=== PATIENT | female | born 1980 | race Caucasian/White ===

== ENCOUNTER 2018-06-15 20:20 | Inpatient (IN) | payer MEDICAID, OTHER ==
[~2018-06-15] VITALS: Ht 157.5 cm; Wt 66.4 kg
[2018-06-15] MEDS ORDERED: ASPIRIN 81 MG TAB PO STA ×2 (21:01→22:15)
[2018-06-15] MEDS ORDERED: HYDROmorphONE 1 MG/ML SYG IV STA (21:01)
[2018-06-15] MEDS ORDERED: ONDANSETRON 4 MG INJ IV STA (21:01)
[2018-06-15] MEDS ORDERED: METHYLPREDNISOLONE 125 MG INJ IV ONE (21:30)
--- NOTE | 2018-06-15 22:10 | ERD ---
ER Documentation Chief Complaint Chief Complaint Left trapezius pain, left jaw pain onset today HPI This is a 38-year-old female complaining of pain to her left trapezius and periscapular region that is worse with movement of the left arm and left shoulder. She said the onset of this pain was last night. Denies any injury or trauma denies any recent lifting pushing pulling. She said she had brief left anterior chest pain this morning x1 but no shortness of breath. She also complains of pain to the left TMJ region that she says hurts when she pushes on it or opens her mouth. No trauma to this area either. No dizziness shortness of breath diaphoresis ROS All systems reviewed and are negative except as per history of present illness. Allergies Allergies: Coded Allergies: No Known Allergy (Unverified , 06/15/18) PMhx/Soc Medical and Surgical Hx: pt denies Medical Hx, pt denies Surgical Hx Hx Alcohol Use: No Hx Substance Use: No Hx Tobacco Use: No Smoking Status: Never smoker FmHx Family History: No coronary disease Physical Exam Vitals Vital Signs Date Temp Pulse Resp B/P (MAP) Pulse Ox O2 O2 Flow FiO2 Time Delivery Rate 06/15/18 98.6 70 16 114/76 99 Room Air 20:34 (89) 06/15/18 98.6 68 18 129/82 100 20:25 (98) Physical Exam Const: Well-developed, well-nourished Head: Atraumatic, normocephalic Eyes: Normal Conjunctiva, PERRLA, EOMI, normal sclera, no nystagmus ENT: Normal External Ears, Nose and Mouth, moist mucus membranes, tenderness to the left TMJ, pain is worse when opening her mouth and reproducible when opening her mouth. Neck: Full range of motion. No meningismus, no lymphadenopathy, there is reproducible tenderness to the left trapezius muscle and rhomboids, the pain is reproducible with movement of the left arm and left shoulder. Resp: Clear to auscultation bilaterally, no wheezing, rhonchi, rales Cardio: Regular rate and rhythm, no murmurs, S1 S2 present Abd: Soft, non tender x 4, non distended. Normal bowel sounds, no guarding or rebound, no pulsitile abdominal masses or bruits Skin: No petechiae or rashes, no ecchymosis , no maculopapular rash Back: No midline or flank tenderness Ext: No cyanosis, or edema, FROM x 4, normal inspection, neurovascularly intact x 4 Neur: Awake and alert, STR 5/5 x 4, sensation intact x 4, no focal findings, cerebellum intact Psych: Normal Mood and Affect Results 24 hrs Laboratory Tests Test 06/15/18 21:29 Troponin I 12.700 ng/ml Current Medications Medications Dose Sig/Madisyn Start Time Status Last (Trade) Ordered Route PRN Stop Time Admin Dose Reason Admin Aspirin 162 mg ONCE STAT 06/15/18 DC 06/15/18 (Aspirin) PO 21:01 21:21 06/15/18 21:02 1 mg ONCE STAT 06/15/18 DC 06/15/18 Hydromorphone IV 21:01 21:31 HCl 06/15/18 (Dilaudid) 21:02 Ondansetron 4 mg ONCE STAT 06/15/18 DC 06/15/18 HCl (Zofran IV 21:01 21:31 Inj) 06/15/18 21:02 125 mg ONCE ONCE 06/15/18 DC 06/15/18 Methylprednis IV 21:30 21:31 olone Sodium 06/15/18 Succinate 21:31 (Solu-Medrol) Aspirin 162 mg ONCE STAT 06/15/18 DC (Aspirin) PO 22:15 06/15/18 22:18 1 inch ONCE STAT 06/15/18 DC Nitroglycerin TD 22:15 06/15/18 (Nitroglyceri 22:18 n 2% Oint) Enoxaparin 70 mg ONCE STAT 06/15/18 DC Sodium SC 22:15 (Lovenox) 06/15/18 22:18 Procedures/MDM EKG: Rate/Rhythm: Normal sinus rhythm, Q waves in lead V1 and V2 QRS, ST, QT: NORMAL SC, QRS, QT] Impression: Abnormal EKG Patient's troponin is 12. She is a very atypical presentation for non-STEMI. She has no risk factors for cardiovascular disease. I ordered blood work, chest x-ray. Will administer another 162 of aspirin with Nitropaste and Lovenox. Will admit to panel. Critical Care Time: 30 minutes Treatments/Evaluations: Close monitoring and treatment of unstable vital signs, cardiorespiratory, and neurologic status, while maintaining tight balance of fluid, respiratory, and cardiac interventions. This time includes discussing the case with the patient and the patient's family. This time does not include all procedures stated elsewhere in this record. This time also includes reviewing old records, labs and radiological studies. This time includes examining and re- examining the patient. Additionally, this time also includes arranging care with admitting and consulting physicians. Departure Diagnosis: Primary Impression: Non-STEMI (non-ST elevated myocardial infarction) Condition: Stable ERIC CHAU DO Jun 15, 2018 22:10
[2018-06-15] MEDS ORDERED: NITROGLYCERIN 2% 1 GM OINT PKT TD STA (22:15)
[2018-06-15] MEDS ORDERED: ENOXAPARIN 60 MG/0.6 ML SYG SC STA (22:15)
[2018-06-15] MEDS ORDERED: ONDANSETRON 4 MG INJ IV PRN (22:30)
[2018-06-15] MEDS ORDERED: ACETAMINOPHEN 325 MG TAB PO PRN (22:30)
[2018-06-15] MEDS ORDERED: IBUP-1982 PO (23:52)
[2018-06-15] MEDS ORDERED: MULTI PO (23:53)
--- NOTE | 2018-06-15 23:55 | HP ---
Date/Time of Note Date/Time of Note DATE: 06/15/18 TIME: 23:55 Assessment/Plan VTE Prophylaxis Pharmacological prophylaxis: heparin Lines/Catheters IV Catheter Type (from Nrs): Saline Lock Assessment/Plan Assessment/Plan 38-year-old female with no significant past medical history being admitted for NSTEMI PLAN Admit to telemetry unit Patient is status post therapeutic dose of Lovenox and aspirin in the ER. We will continue. Add statin and if blood pressure allows beta-loi. As needed nitro Supplemental oxygen Trend troponin 2D echo and cardiology consult Result Diagram: 06/15/18212506/15/182125 Results 24hrs Laboratory Tests Test 06/15/18 21:26 06/15/18 21:29 White Blood Count 9.8 Red Blood Count 3.95 L Hemoglobin 11.7 L Hematocrit 34.0 L Mean Corpuscular Volume 86.1 Mean Corpuscular Hemoglobin 29.6 Mean Corpuscular Hemoglobin Concent 34.4 Red Cell Distribution Width 12.7 Platelet Count 228 Mean Platelet Volume 11.8 H Immature Granulocytes % 0.400 Neutrophils % 80.8 H Lymphocytes % 10.4 L Monocytes % 7.4 Eosinophils % 0.7 Basophils % 0.3 Nucleated Red Blood Cells % 0.0 Immature Granulocytes # 0.040 H Neutrophils # 7.9 H Lymphocytes # 1.0 Monocytes # 0.7 Eosinophils # 0.1 Basophils # 0.0 Nucleated Red Blood Cells # 0.0 Prothrombin Time 14.0 Prothrombin Time Ratio 1.1 INR International Normalized Ratio 1.07 Activated Partial Thromboplast Time 28.6 Sodium Level 138 Potassium Level 3.1 L Chloride Level 101 Carbon Dioxide Level 24 Anion Gap 13 Blood Urea Nitrogen 14 Creatinine 0.48 Est Glomerular Filtrat Rate mL/min > 60 Glucose Level 167 Calcium Level 8.8 Total Bilirubin 0.2 Direct Bilirubin 0.00 Indirect Bilirubin 0.2 Aspartate Amino Transf (AST/SGOT) 105 H Alanine Aminotransferase (ALT/SGPT) 75 H Alkaline Phosphatase 107 Total Protein 6.1 Albumin 3.4 Globulin 2.70 Albumin/Globulin Ratio 1.25 Troponin I 12.700 *H HPI/ROS Admit Date/Time Admit Date/Time Hx of Present Illness This is a 38-year-old female with no significant past medical history who presents the ER complaining of chest pain, left shoulder and left arm pain. Chest pain is mainly left-sided, which started in the morning and has resolved already. Throughout the day, she continues to have left shoulder/left upper back as well as left arm pain. Denied shortness of breath, nausea/vomiting or diaphoresis. He also denied trauma or strenuous activities. When she presented to ER, initial troponin was found to be 12. EKG shows Q waves as well as T wave abnormalities, but no ST elevation or depression. Patient was given treatment dose of Lovenox. Vital stable and the chest x-ray without acute findings. . PMH/Family/Social Past Medical History Medications Current Medications Ondansetron HCl (Zofran Inj) 4 mg ER BRIDGE PRN IV NAUSEA AND/OR VOMITING; Start 06/15/18 at 22:30; Stop 06/16/18 at 22:29 Acetaminophen (Tylenol Tab) 650 mg ER BRIDGE PRN PO MILD PAIN(1-3)OR ELEVATED TEMP; Start 06/15/18 at 22:30; Stop 06/16/18 at 22:29 Coded Allergies: No Known Allergy (Unverified , 06/15/18) Social History Smoking Status: Never smoker Exam/Review of Systems Vital Signs Vitals Vital Signs Date Temp Pulse Resp B/P (MAP) Pulse Ox O2 O2 Flow FiO2 Time Delivery Rate 06/15/18 66 13 113/76 99 Nasal 2.0 22:57 (88) Cannula 06/15/18 98.6 20:34 Exam Exam Constitutional: other (no acute distress) Head: normocephalic Respiratory: other (slight decreased at bases) Cardiovascular: regular rate and rhythm Gastrointestinal: soft Extremities: normal pulses PMH/Family/Social Past Medical History Medical History: other (see hpi) Coded Allergies: No Known Drug Allergy (Verified Allergy, Unknown, 02/01/16) Past Surgical History Past Surgical Hx: other (see hpi) Family History Significant Family History: no pertinent family hx Social History Alcohol Use: other Smoking Status: Unknown if ever smoked Drug Use: other ESTER LEONE MD Jun 15, 2018 23:55
[2018-06-16] VITALS (11 sets, daily range): BP systolic 95–102; BP diastolic 51–62; PULSE 58–90; RESP 16–18; Ht 157.5 cm; Wt 66.4 kg
[2018-06-16] MEDS ORDERED: NITROGLYCERIN (SL) 0.4 MG TAB SL PRN
[2018-06-16] MEDS ORDERED: ALBUTEROL/IPRATROPIUM (NEB) 3 ML AMP HHN PRN
[2018-06-16] MEDS ORDERED: ATORVASTATIN 80 MG TAB PO ONE
[2018-06-16] MEDS ORDERED: ONDANSETRON 4 MG INJ IV PRN
[2018-06-16] MEDS ORDERED: HYDROCODONE/APAP (5/325) TAB PO PRN ×2
[2018-06-16] MEDS ORDERED: NACL 0.9% 3 ML SYG IV SCH
[2018-06-16] MEDS ORDERED: ACETAMINOPHEN 325 MG TAB PO PRN
--- NOTE | 2018-06-16 00:57 | NUR ---
NOTES ADMISSION UNDER THE CARE OF DR LEONE. ADMISSION ORDER NOTED AND CARRIED OUT. INITIAL ASSESSMENT DONE.
[2018-06-16] MEDS: DEXTROSE 5%-0.45% NACL 1,000 ML IV SCH ×3 (01:50→12:55)
--- NOTE | 2018-06-16 06:51 | NUR ---
NOTES PT DENIES ANY PAIN DURING THE SHIFT. INSTRUCTED TO CALL THE NURSE IF SHE FEEL ANY DISCOMFORT.
[2018-06-16] MEDS: ASPIRIN 81 MG TAB PO SCH (09:12)
[2018-06-16] MEDS: ENOXAPARIN 80 MG/0.8 ML SYG SC SCH ×2 (09:13→20:16)
--- NOTE | 2018-06-16 11:24 | PN ---
Date/Time of Note Date/Time of Note DATE: 06/16/18 TIME: 11:23 Assessment/Plan VTE Prophylaxis Risk score (from Ns)>0 risk: 2 SCD applied (from Nsg): Yes Pharmacological prophylaxis: LMWH Lines/Catheters IV Catheter Type (from Nrsg): Peripheral IV Urinary Cath still in place: No Assessment/Plan Hospital Course SUBJECTIVE: Lying in bed comfortably. Denies any chest pain, palpitation, shortness of breath or other discomfort at this time. OBJECTIVE: Vital signs-see below PHYSICAL EXAM: Constitutional: Well-developed, adequately built, lying in bed comfortably. Psych: nl mood/affect, no complaints Head: atraumatic, normocephalic Eyes: nl conjunctiva, nl sclera ENMT: mucosa pink and moist, nl external ears & nose Neck: non-tender, supple Respiratory: clear to auscultation, normal air movement Cardiovascular: nl pulses, regular rate and rhythm Gastrointestinal: non-tender, soft, bowel sounds active in all 4 quadrants. Musculoskeletal/extremities: nl extremities to inspection, motor strength equal bilaterally, no focal deficit. Normal pulses,no cyanosis, no edema. Neurological: Alert oriented 3,nl speech, nl strength Skin: nl turgor ASSESSMENT/PLAN:38-year-old female with no past medical or social history, admitted with 2-day duration of left-sided chest pain radiating to left shoulder, neck, and LUE, found to have elevated troponin with EKG changes. 1. Non-ST elevated myocardial infarction. -Pending Cardiology consult. As per subhash, left message to Dr. Warner. I spoke with Dr. Warner and we will consult who is workers compensation attorney today. -Continue aspirin, full dose anticoagulation, increase statin to high intensity. -PRN nitroglycerin, morphine, oxygen if indicated. -Follow-up 2D echocardiogram -Initial EKG with presence of Q waves. I will repeat her twelve-lead EKG now. DVT prophylaxis: Full dose Lovenox PUD prophylaxis: Not indicated Diet: Recommend keeping patient n.p.o. for possible cardiac intervention today. Disposition: Continue current medical management and follow-up cardiology recommendations. Patient was seen in collaboration with . Result Diagram: 06/16/18 0549 06/16/18 0549 Results 24hrs Laboratory Tests Test 06/15/18 21:26 06/15/18 21:29 06/16/18 00:43 06/16/18 05:49 White Blood Count 9.8 8.1 Red Blood Count 3.95 L 4.14 L Hemoglobin 11.7 L 12.4 Hematocrit 34.0 L 35.6 L Mean Corpuscular 86.1 86.0 Volume Mean Corpuscular 29.6 30.0 Hemoglobin Mean Corpuscular 34.4 34.8 Hemoglobin Concent Red Cell 12.7 12.6 Distribution Width Platelet Count 228 263 Mean Platelet Volume 11.8 H 11.4 H Immature 0.400 0.600 H Granulocytes % Neutrophils % 80.8 H Lymphocytes % 10.4 L Monocytes % 7.4 Eosinophils % 0.7 Basophils % 0.3 Nucleated Red Blood 0.0 0.0 Cells % Immature 0.040 H 0.050 H Granulocytes # Neutrophils # 7.9 H Lymphocytes # 1.0 Monocytes # 0.7 Eosinophils # 0.1 Basophils # 0.0 Nucleated Red Blood 0.0 Cells # Prothrombin Time 14.0 Prothrombin Time 1.1 Ratio INR International 1.07 Normalized Ratio Activated 28.6 Partial Thromboplast Time Sodium Level 138 140 Potassium Level 3.1 L 4.0 Chloride Level 101 102 Carbon Dioxide Level 24 26 Anion Gap 13 12 Blood Urea Nitrogen 14 9 Creatinine 0.48 0.41 L Est Glomerular > 60 > 60 Filtrat Rate mL/min Glucose Level 167 194 Calcium Level 8.8 9.3 Total Bilirubin 0.2 0.3 Direct Bilirubin 0.00 0.00 Indirect Bilirubin 0.2 0.3 Aspartate Amino 105 H 106 H Transf (AST/SGOT) Alanine 75 H 68 Aminotransferase (AL T/SGPT) Alkaline Phosphatase 107 107 Total Protein 6.1 7.1 # Albumin 3.4 3.9 Globulin 2.70 3.20 Albumin/Globulin 1.25 1.21 Ratio Troponin I 12.700 *H 10.300 *H 5.960 *H Creatine Kinase 735 H 511 H Creatine Kinase 8.7 9.6 Index Creatinine Kinase MB 64.00 H 49.10 H (Mass) Segmented 90 H Neutrophils % (Manual) Band Neutrophils % 1 (Manual) Lymphocytes % 4 L (Manual) Reactive Lymphocytes 3 H % (Manual) Monocytes % (Manual) 1 Plasma Cells % 1 (manual) Neutrophils # 7.3 (Manual) Band Neutrophils # 0.0 Lymphocytes (Manual) 0.3 L Reactive Lymphocytes 0.2 H # Monocytes # (Manual) 0.0 L Plasma Cells # 0.0 (manual) Platelet Estimate NORMAL Giant Platelets 2 H Platelet Morphology @See below Comment Anisocytosis 1+ Hemoglobin A1c 5.5 Magnesium Level 2.1 Triglycerides Level 81 Cholesterol Level 142 LDL Cholesterol, 80 Calculated HDL Cholesterol 46 Cholesterol/HDL 3.0 Ratio Thyroid Stimulating 0.113 L Hormone (TSH) Exam/Review of Systems Vital Signs Vitals Vital Signs Date Temp Pulse Resp B/P (MAP) Pulse Ox O2 O2 Flow FiO2 Time Delivery Rate 06/16/18 62 09:12 06/16/18 98.0 16 98/58 (71) 99 Room Air 07:21 06/16/18 2.0 04:00 Intake and Output 06/15/18 06/15/18 06/16/18 1515:00 23:00 07:00 IntakeIntake Total 620 ml BalanceBalance 620 ml Medications Medications Current Medications Ondansetron HCl (Zofran Inj) 4 mg ER BRIDGE PRN IV NAUSEA AND/OR VOMITING; Start 06/15/18 at 22:30; Stop 06/16/18 at 22:29 Acetaminophen (Tylenol Tab) 650 mg ER BRIDGE PRN PO MILD PAIN(1-3)OR ELEVATED TEMP; Start 06/15/18 at 22:30; Stop 06/16/18 at 22:29 Dextrose/Sodium Chloride 1,000 ml @ 100 mls/hr Q10H IV Last administered on 06/16/18at 01:50; Admin Dose 100 MLS/HR; Start 06/16/18 at 00:00 IV Flush (NS 3 ml) 3 ml PER PROTOCOL IV ; Start 06/16/18 at 00:00 Ondansetron HCl (Zofran Inj) 4 mg Q6H PRN IV NAUSEA AND/OR VOMITING; Start 06/16/18 at 00:00 Aspirin (Aspirin) 81 mg DAILY PO Last administered on 06/16/18at 09:12; Admin Dose 81 MG; Start 06/16/18 at 09:00 Nitroglycerin (Nitroglycerin (Sl Tab) 0.4 Mg) 1 tab Q5M PRN SL CHEST PAIN; Start 06/16/18 at 00:00 Acetaminophen (Tylenol Tab) 650 mg Q6H PRN PO PAIN LEVEL 1-3 OR FEVER; Start 06/16/18 at 00:00 Acetaminophen/ Hydrocodone Bitart ([place] (5/325)) 1 tab Q6H PRN PO PAIN LEVEL 4-6; Start 06/16/18 at 00:00 Acetaminophen/ Hydrocodone Bitart ([place] (5/325)) 2 tab Q6H PRN PO PAIN LEVEL 7-10; Start 06/16/18 at 00:00 Albuterol/ Ipratropium (Duoneb) 3 ml Q2H RESP THERAPY PRN HHN SHORTNESS OF BR EATH; Start 06/16/18 at 00:00 Enoxaparin Sodium (Lovenox) 65 mg Q12 SC Last administered on 06/16/18at 09:13; Admin Dose 65 MG; Start 06/16/18 at 09:00 Atorvastatin Calcium (Lipitor) 20 mg HS PO ; Start 06/16/18 at 21:00 KARINA RAPP NP Jun 16, 2018 11:24
[2018-06-16] MEDS ORDERED: morphine 4 MG/ML VIAL IV PRN (11:30)
--- NOTE | 2018-06-16 12:12 | RADRPT ---
Echocardiogram Report Patient Name: RENETTA BUTTS Gender: Female Date: 1980 Study Date: 16-Jun-2018 Forging [employer] Finisher: Megan Diaz RDCS Location: [id number] Ref. Physician: ESTER LEONE Quality: Adequate Procedures: Transthoracic echocardiogram with complete 2D, M-Mode, and doppler examination. Indications: NSTEMI. 2D/M Mode Doppler Measurement Value Normal Ranges Measurement Value Normal Ranges LVIDd 2D 4.0 3.5 - 5.6 cm AV Peak Aston 1.3 m/sec LVIDs 2D 2.9 2.1 - 4.1 cm AV Peak PG 7.0 mmHg FS 2D 28.1 % LVOT Peak [place]ston 0.8 m/sec LVPWd 2D 1.0 0.6 - 1.1 cm LVOT Peak PG 2.0 mmHg IVSd 2D 0.9 0.6 - 1.1 cm MV E Peak [place]ston 0.9 m/sec IVS/LVPW 2D 0.9 MV A Peak Aston 0.9 m/sec AoR Diam 2D 2.3 2.0 - 3.7 cm MV E/A 1.0 LA/Ao 2D 1 0 - 1 MV Decel Time 169 msec EDV 2D 65.0 cm3 MV E/A 1.0 ESV 2D 24.1 cm3 TV E Peak [place]ston 0.7 m/sec LA Dimen 2D 3.0 2.3 - 4.0 cm Findings Left Ventricle: Overall, normal left ventricular systolic function. Not all segments visualized. Normal left ventricular cavity size. Normal left ventricular wall thickness. Ejection fraction is visually estimated at 60 %. Right Ventricle: Normal right ventricular size. Normal right ventricular systolic function. Left Atrium: The left atrium is normal in size. Right Atrium: The right atrium is normal in size. Mitral Valve: Normal appearance of the mitral valve. No mitral valve regurgitation is seen. Aortic Valve: Normal appearance of the aortic valve. No significant aortic stenosis or insufficiency. Tricuspid Valve: Normal appearance of the tricuspid valve. There is trace tricuspid regurgitation. Pulmonic Valve: Normal pulmonic valve appearance. No evidence of pulmonic regurgitation. Pericardium: Normal pericardium with no significant pericardial effusion. Aorta: Normal aortic root. IVC: Normal size and normal respiratory collapse consistent with normal right atrial pressure. Conclusions Overall, normal left ventricular systolic function. Not all segments visualized. Normal left ventricular cavity size. Normal left ventricular wall thickness. Ejection fraction is visually estimated at 60 %. Normal right ventricular size. Normal right ventricular systolic function. The left atrium is normal in size. The right atrium is normal in size. No significant valvular stenosis or regurgitation seen. Normal pericardium with no significant pericardial effusion. Electronically Signed By: Zoran Bryan 16-Jun-2018 12:11:19 -0800 Patient Name: RENETTA BUTTS Study Date: [id number]
--- NOTE | 2018-06-16 13:15 | CONS ---
Date/Time of Note Date/Time of Note DATE: 06/16/18 TIME: 13:10 Assessment/Plan Assessment/Plan Assessment/Plan Non-ST elevation myocardial infarction Preserved ejection fraction -Patient with initial symptoms of fevers and chills and cough and then developed left-sided chest pain and arm pain. Initial troponin was 12 and has since been trending down. She denies any shortness of breath or chest pain at the current time. Echocardiogram with difficult acoustic windows but overall preserved ejection fraction, ECG with anterior Q waves. Continue aspirin therapy, statin therapy, anticoagulation, will likely need coronary angiogram. Plan of care and findings discussed with the patient and at bedside via dehydration plant operator. -Dr Warner to resume care 06/17/2018 Result Diagram: 06/16/18 0549 06/16/18 0549 Results 24hrs Laboratory Tests Test 06/15/18 21:26 06/15/18 21:29 06/16/18 00:43 06/16/18 05:49 White Blood Count 9.8 8.1 Red Blood Count 3.95 L 4.14 L Hemoglobin 11.7 L 12.4 Hematocrit 34.0 L 35.6 L Mean Corpuscular 86.1 86.0 Volume Mean Corpuscular 29.6 30.0 Hemoglobin Mean Corpuscular 34.4 34.8 Hemoglobin Concent Red Cell 12.7 12.6 Distribution Width Platelet Count 228 263 Mean Platelet Volume 11.8 H 11.4 H Immature 0.400 0.600 H Granulocytes % Neutrophils % 80.8 H Lymphocytes % 10.4 L Monocytes % 7.4 Eosinophils % 0.7 Basophils % 0.3 Nucleated Red Blood 0.0 0.0 Cells % Immature 0.040 H 0.050 H Granulocytes # Neutrophils # 7.9 H Lymphocytes # 1.0 Monocytes # 0.7 Eosinophils # 0.1 Basophils # 0.0 Nucleated Red Blood 0.0 Cells # Prothrombin Time 14.0 Prothrombin Time 1.1 Ratio INR International 1.07 Normalized Ratio Activated 28.6 Partial Thromboplast Time Sodium Level 138 140 Potassium Level 3.1 L 4.0 Chloride Level 101 102 Carbon Dioxide Level 24 26 Anion Gap 13 12 Blood Urea Nitrogen 14 9 Creatinine 0.48 0.41 L Est Glomerular > 60 > 60 Filtrat Rate mL/min Glucose Level 167 194 Calcium Level 8.8 9.3 Total Bilirubin 0.2 0.3 Direct Bilirubin 0.00 0.00 Indirect Bilirubin 0.2 0.3 Aspartate Amino 105 H 106 H Transf (AST/SGOT) Alanine 75 H 68 Aminotransferase (AL T/SGPT) Alkaline Phosphatase 107 107 Total Protein 6.1 7.1 # Albumin 3.4 3.9 Globulin 2.70 3.20 Albumin/Globulin 1.25 1.21 Ratio Troponin I 12.700 *H 10.300 *H 5.960 *H Creatine Kinase 735 H 511 H Creatine Kinase 8.7 9.6 Index Creatinine Kinase MB 64.00 H 49.10 H (Mass) Segmented 90 H Neutrophils % (Manual) Band Neutrophils % 1 (Manual) Lymphocytes % 4 L (Manual) Reactive Lymphocytes 3 H % (Manual) Monocytes % (Manual) 1 Plasma Cells % 1 (manual) Neutrophils # 7.3 (Manual) Band Neutrophils # 0.0 Lymphocytes (Manual) 0.3 L Reactive Lymphocytes 0.2 H # Monocytes # (Manual) 0.0 L Plasma Cells # 0.0 (manual) Platelet Estimate NORMAL Giant Platelets 2 H Platelet Morphology @See below Comment Anisocytosis 1+ Hemoglobin A1c 5.5 Magnesium Level 2.1 Triglycerides Level 81 Cholesterol Level 142 LDL Cholesterol, 80 Calculated HDL Cholesterol 46 Cholesterol/HDL 3.0 Ratio Thyroid Stimulating 0.113 L Hormone (TSH) Consultation Date/Type/Reason Admit Date/Time Type of Consult cv Reason for Consultation Elevated troponin Hx of Present Illness This is a 38-year-old female with no significant past medical history was having symptoms of fevers, chills and cough proxy 2-3 days, then approximately 2-3 days ago, developed left-sided chest pain and arm pain. Patient could not describe the pain that she thought it felt musculoskeletal. She denies any chest pressure. Denies any shortness of breath. Symptoms were getting severe and slowly improved. Yesterday, patient with continued chest and arm pain because of the above, came to the emergency room for evaluation and care. She denies any further chest pain, arm pain since yesterday evening. She denies any shortness of breath. She complains of mild headache after nitroglycerin. 12 point review of systems was performed with all pertinent positives and negatives mentioned above and all else is negative Past Medical History Medical History: no pertinent history Medications Current Medications Dextrose/Sodium Chloride 1,000 ml @ 100 mls/hr Q10H IV Last administered on 06/16/18at 12:55; Admin Dose 100 MLS/HR; Start 06/16/18 at 00:00 IV Flush (NS 3 ml) 3 ml PER PROTOCOL IV ; Start 06/16/18 at 00:00 Ondansetron HCl (Zofran Inj) 4 mg Q6H PRN IV NAUSEA AND/OR VOMITING; Start 06/16/18 at 00:00 Aspirin (Aspirin) 81 mg DAILY PO Last administered on 06/16/18at 09:12; Admin Dose 81 MG; Start 06/16/18 at 09:00 Nitroglycerin (Nitroglycerin (Sl Tab) 0.4 Mg) 1 tab Q5M PRN SL CHEST PAIN; Start 06/16/18 at 00:00 Acetaminophen (Tylenol Tab) 650 mg Q6H PRN PO PAIN LEVEL 1-3 OR FEVER; Start 06/16/18 at 00:00 Albuterol/ Ipratropium (Duoneb) 3 ml Q2H RESP THERAPY PRN HHN SHORTNESS OF BREATH; Start 06/16/18 at 00:00 Enoxaparin Sodium (Lovenox) 65 mg Q12 SC Last administered on 06/16/18at 09:13; Admin Dose 65 MG; Start 06/16/18 at 09:00 Atorvastatin Calcium (Lipitor) 80 mg HS PO ; Start 06/16/18 at 21:00 Morphine Sulfate (morphine) 2 mg Q4H PRN IV SEVERE PAIN LEVEL 7-10; Start 06/16/18 at 11:30 Allergies: Coded Allergies: No Known Allergy (Unverified , 06/15/18) Past Surgical History Past Surgical Hx: no surgical history Family History Significant Family History: no pertinent family hx Social History Alcohol Use: none Smoking Status: Former smoker Other Social History Works as a cook in a restaurant Exam/Review of Systems Vital Signs Vitals Vital Signs Date Temp Pulse Resp B/P (MAP) Pulse Ox O2 O2 Flow FiO2 Time Delivery Rate 06/16/18 65 13:07 06/16/18 98.2 17 99/57 (71) 97 Nasal 11:37 Cannula 06/16/18 2.0 04:00 Intake and Output 06/15/18 06/15/18 06/16/18 1515:00 23:00 07:00 IntakeIntake Total 620 ml BalanceBalance 620 ml Exam No apparent distress Constitutional: alert, oriented, well developed Head: normocephalic Respiratory: clear to auscultation, normal air movement Cardiovascular: regular rate and rhythm, other (S1-S2 heard) Gastrointestinal: soft, non-tender, bowel sounds Extremities: other (No significant edema) Medications Medications Current Medications Dextrose/Sodium Chloride 1,000 ml @ 100 mls/hr Q10H IV Last administered on 06/16/18at 12:55; Admin Dose 100 MLS/HR; Start 06/16/18 at 00:00 IV Flush (NS 3 ml) 3 ml PER PROTOCOL IV ; Start 06/16/18 at 00:00 Ondansetron HCl (Zofran Inj) 4 mg Q6H PRN IV NAUSEA AND/OR VOMITING; Start 06/16/18 at 00:00 Aspirin (Aspirin) 81 mg DAILY PO Last administered on 06/16/18at 09:12; Admin Do se 81 MG; Start 06/16/18 at 09:00 Nitroglycerin (Nitroglycerin (Sl Tab) 0.4 Mg) 1 tab Q5M PRN SL CHEST PAIN; Start 06/16/18 at 00:00 Acetaminophen (Tylenol Tab) 650 mg Q6H PRN PO PAIN LEVEL 1-3 OR FEVER; Start 06/16/18 at 00:00 Albuterol/ Ipratropium (Duoneb) 3 ml Q2H RESP THERAPY PRN HHN SHORTNESS OF BREATH; Start 06/16/18 at 00:00 Enoxaparin Sodium (Lovenox) 65 mg Q12 SC Last administered on 06/16/18at 09:13; Admin Dose 65 MG; Start 06/16/18 at 09:00 Atorvastatin Calcium (Lipitor) 80 mg HS PO ; Start 06/16/18 at 21:00 Morphine Sulfate (morphine) 2 mg Q4H PRN IV SEVERE PAIN LEVEL 7-10; Start 06/16/18 at 11:30 Imaging Imaging ECG with sinus rhythm, anterior Q waves, nonspecific ST abnormalities Zoran Bryan DO Jun 16, 2018 13:15
--- NOTE | 2018-06-16 18:34 | NUR ---
END OF SHIFT REPORT: No complaints of chest pain all day. VSS. Patient updated with plan of care by Dr. Bryan and is agreeable. NPO except meds after midnight for possible procedure in AM.
[2018-06-16] MEDS: ATORVASTATIN 80 MG TAB PO SCH (20:10)
[2018-06-16] MEDS ORDERED: ATORVASTATIN 20 MG TAB PO SCH (21:00)
--- NOTE | 2018-06-16 21:21 | NUR ---
NOTES RESTING ON BED WITH HEPLOCK INTACT. INSTRUCTED TO KEEP NPO FROM MIDNIGHT FOR POSSIBLE PROCEDURE IN AM.
[2018-06-17] VITALS (10 sets, daily range): BP systolic 97–105; BP diastolic 54–62; PULSE 69–76; RESP 16–19
[2018-06-17] MEDS ORDERED: VERAPAMIL 5 MG INJ ONE (07:46)
[2018-06-17] MEDS ORDERED: SOD CHLORIDE 0.9% 500 ML ONE (07:46)
[2018-06-17] MEDS ORDERED: LIDOCAINE 1% (MDV) 20 ML INJ ONE (07:46)
[2018-06-17] MEDS ORDERED: IODIXANOL LOCM 100 ML BTL ONE ×2 (07:46→07:47)
[2018-06-17] MEDS ORDERED: MIDAZOLAM 1 MG/ML 2 ML INJ ONE (07:47)
[2018-06-17] MEDS ORDERED: NITROGLYCERIN (IC) 100 MCG/ML INJ ONE (07:47)
[2018-06-17] MEDS ORDERED: FENTAnyl 50 MCG/ML VIAL ONE (07:47)
[2018-06-17] MEDS ORDERED: HEPARIN 1000 UNITS/ML 10 ML INJ ONE (07:47)
--- NOTE | 2018-06-17 07:54 | CONS ---
Date/Time of Note Date/Time of Note DATE: 06/17/18 TIME: 07:50 Consult Date/Type/Reason Admit Date/Time Jun 15, 2018 at 22:26 Initial Consult Date Type of Consultation: cv Subjective cv follow up note S D/W staff and physicians tele was reviewed. pt with no more chest pain or pressure or palpitations now no bleeding O: General: no acute distress HEENT: NC/AT. pupils are equal. round. NECK: NO JVD. no stridor. CV: RRR. systolic murmur; no gallop or rubs. PULM: no wheezing or rhonchi. GI: SOFT, NT, ND, no rebound or guarding Extremity: trace B/L LE edema. no clubbing. neuro: awake and alert, OX3. Psych: calm and pleasant rectal: deferred echo shows normal EF and no effusion Objective Vital Signs Date Temp Pulse Resp B/P (MAP) Pulse Ox O2 O2 Flow FiO2 Time Delivery Rate 06/17/18 98.1 69 18 102/61 98 07:20 (75) 06/16/18 Nasal 2.0 20:00 Cannula Intake and Output 06/16/18 06/16/18 06/17/18 1515:00 23:00 07:00 IntakeIntake Total 1070 ml BalanceBalance 1070 ml Results/Medications Result Diagram: 06/17/18 0537 06/17/18 0537 Results 24 hrs Laboratory Tests Test 06/17/18 05:37 White Blood Count 11.0 #H Red Blood Count 3.77 L Hemoglobin 11.1 L Hematocrit 32.6 L Mean Corpuscular Volume 86.5 Mean Corpuscular Hemoglobin 29.4 Mean Corpuscular Hemoglobin Concent 34.0 Red Cell Distribution Width 12.9 Platelet Count 254 Mean Platelet Volume 11.7 H Immature Granulocytes % 0.500 H Neutrophils % 72.1 Lymphocytes % 19.4 Monocytes % 7.4 Eosinophils % 0.2 Basophils % 0.4 Nucleated Red Blood Cells % 0.0 Immature Granulocytes # 0.060 H Neutrophils # 7.9 H Lymphocytes # 2.1 Monocytes # 0.8 Eosinophils # 0.0 Basophils # 0.0 Nucleated Red Blood Cells # 0.0 Sodium Level 143 Potassium Level 3.7 Chloride Level 103 Carbon Dioxide Level 30 Anion Gap 10 Blood Urea Nitrogen 11 Creatinine 0.56 Est Glomerular Filtrat Rate mL/min > 60 Glucose Level 110 # Calcium Level 8.9 Phosphorus Level 3.5 Magnesium Level 1.8 Medications Current Medications IV Flush (NS 3 ml) 3 ml PER PROTOCOL IV ; Start 06/16/18 at 00:00 Ondansetron HCl (Zofran Inj) 4 mg Q6H PRN IV NAUSEA AND/OR VOMITING; Start 06/16/18 at 00:00 Aspirin (Aspirin) 81 mg DAILY PO Last administered on 06/16/18at 09:12; Admin Dose 81 MG; Start 06/16/18 at 09:00 Nitroglycerin (Nitroglycerin (Sl Tab) 0.4 Mg) 1 tab Q5M PRN SL CHEST PAIN; Start 06/16/18 at 00:00 Acetaminophen (Tylenol Tab) 650 mg Q6H PRN PO PAIN LEVEL 1-3 OR FEVER; Start 06/16/18 at 00:00 Albuterol/ Ipratropium (Duoneb) 3 ml Q2H RESP THERAPY PRN HHN SHORTNESS OF BREATH; Start 06/16/18 at 00:00 Enoxaparin Sodium (Lovenox) 65 mg Q12 SC Last administered on 06/16/18at 20:16; Admin Dose 65 MG; Start 06/16/18 at 09:00 Atorvastatin Calcium (Lipitor) 80 mg HS PO Last administered on 06/16/18at 20:10; Admin Dose 80 MG; Start 06/16/18 at 21:00 Morphine Sulfate (morphine) 2 mg Q4H PRN IV SEVERE PAIN LEVEL 7-10; Start 06/16/18 at 11:30 Assessment/Plan Chief Complaint/Hosp Course chest pain and abnormal trop: c/w NSTEMI chest pain anemia hypotension: Rec; dc lovenox cont ASA LHC khoa possible PCI TODAY CONT LIPITOR too hypotensive to tolerate betablocker Thank you ERICKA GONZALEZ,ERICKA ALVARADO Jun 17, 2018 07:54
[2018-06-17] MEDS: ASPIRIN 81 MG TAB PO SCH (09:09)
--- NOTE | 2018-06-17 11:34 | PN ---
Date/Time of Note Date/Time of Note DATE: 06/17/18 TIME: 11:18 Assessment/Plan VTE Prophylaxis Risk score (from Ns)>0 risk: 2 SCD applied (from Ns): Yes SCD contraindicated: low risk/ambulating Pharmacological prophylaxis: NA/contraindicated Pharm contraindication: low risk/ambulating Lines/Catheters [facility] Sal[facility] Urinary Cath still in place: No Assessment/Plan Hospital Course SUBJECTIVE: No acute overnight episodes. No chest pain. OBJECTIVE: Vital signs-see below PHYSICAL EXAM: Constitutional: Well-developed, adequately built, lying in bed comfortably. Psych: nl mood/affect, no complaints Head: atraumatic, normocephalic Eyes: nl conjunctiva, nl sclera ENMT: mucosa pink and moist, nl external ears & nose Neck: non-tender, supple Respiratory: clear to auscultation, normal air movement Cardiovascular: nl pulses, regular rate and rhythm Gastrointestinal: non-tender, soft, bowel sounds active in all 4 quadrants. Musculoskeletal/extremities: nl extremities to inspection, motor strength equal bilaterally, no focal deficit. Normal pulses,no cyanosis, no edema. Neurological: Alert oriented 3,nl speech, nl strength Skin: nl turgor ASSESSMENT/PLAN:38-year-old female with no past medical or social history, admitted with 2-day duration of left-sided chest pain radiating to left shoulder , neck, and LUE, found to have elevated troponin with EKG changes. 1. Non-ST elevated myocardial infarction. -Plan is [facility], tentatively scheduled for tomorrow. -Continue aspirin, high intensity statin. No indication for ATC per cardiology. 2. Low TSH, assess significance. -Add a full thyroid panel. DVT prophylaxis: SCDs PUD prophylaxis: Not indicated Diet: Low-cholesterol/low-fat diet. Disposition: Continue current medical management and follow-up cardiology recommendations. Patient was seen in collaboration with Result Diagram: 06/17/18 0537 06/17/18 0537 Results 24hrs Laboratory Tests Test 06/17/18 05:36 06/17/18 05:37 Serum HCG, Qualitative NEGATIVE White Blood Count 11.0 #H Red Blood Count 3.77 L Hemoglobin 11.1 L Hematocrit 32.6 L Mean Corpuscular Volume 86.5 Mean Corpuscular Hemoglobin 29.4 Mean Corpuscular Hemoglobin Concent 34.0 Red Cell Distribution Width 12.9 Platelet Count 254 Mean Platelet Volume 11.7 H Immature Granulocytes % 0.500 H Neutrophils % 72.1 Lymphocytes % 19.4 Monocytes % 7.4 Eosinophils % 0.2 Basophils % 0.4 Nucleated Red Blood Cells % 0.0 Immature Granulocytes # 0.060 H Neutrophils # 7.9 H Lymphocytes # 2.1 Monocytes # 0.8 Eosinophils # 0.0 Basophils # 0.0 Nucleated Red Blood Cells # 0.0 Sodium Level 143 Potassium Level 3.7 Chloride Level 103 Carbon Dioxide Level 30 Anion Gap 10 Blood Urea Nitrogen 11 Creatinine 0.56 Est Glomerular Filtrat Rate mL/min > 60 Glucose Level 110 # Calcium Level 8.9 Phosphorus Level 3.5 Magnesium Level 1.8 Exam/Review of Systems Vital Signs Vitals Vital Signs Date Temp Pulse Resp B/P (MAP) Pulse Ox O2 O2 Flow FiO2 Time Delivery Rate 06/17/18 74 08:58 06/17/18 98.1 18 102/61 98 07:20 (75) 06/16/18 Nasal 2.0 20:00 Cannula Intake and Output 06/16/18 06/16/18 06/17/18 1515:00 23:00 07:00 IntakeIntake Total 1070 ml BalanceBalance 1070 ml Medications Medications Current Medications IV Flush (NS 3 ml) 3 ml PER PROTOCOL IV ; Start 06/16/18 at 00:00 Ondansetron HCl (Zofran Inj) 4 mg Q6H PRN IV NAUSEA AND/OR VOMITING; Start 06/16/18 at 00:00 Aspirin (Aspirin) 81 mg DAILY PO Last administered on 06/17/18at 09:09; Admin Dose 81 MG; Start 06/16/18 at 09:00 Nitroglycerin (Nitroglycerin (Sl Tab) 0.4 Mg) 1 tab Q5M PRN SL CHEST PAIN; Start 06/16/18 at 00:00 Acetaminophen (Tylenol Tab) 650 mg Q6H PRN PO PAIN LEVEL 1-3 OR FEVER; Start 06/16/18 at 00:00 Albuterol/ Ipratropium (Duoneb) 3 ml Q2H RESP THERAPY PRN HHN SHORTNESS OF BREATH; Start 06/16/18 at 00:00 Atorvastatin Calcium (Lipitor) 80 mg HS PO Last administered on 06/16/18at 20:10; Admin Dose 80 MG; Start 06/16/18 at 21:00 Morphine Sulfate (morphine) 2 mg Q4H PRN IV SEVERE PAIN LEVEL 7-10; Start 06/16/18 at 11:30 KARINA RAPP NP Jun 17, 2018 11:28
--- NOTE | 2018-06-17 12:57 | QN ---
Documentation Comment just called me and reported that heart cath is down and advised to obtain a CT coronary angiography and start patient on Lopressor 25 mg twice daily. KARINA RAPP NP Jun 17, 2018 12:57
[2018-06-17] MEDS: METOPROLOL 25 MG TAB PO SCH ×2 (14:45→20:34)
[2018-06-17] MEDS ORDERED: IVABRADINE HCL 5 MG TABLET PO SCH (17:55)
--- NOTE | 2018-06-17 18:57 | NUR ---
EOSS;PT AWAKE,ALERT ORIENTED X4;HEMODYNAMICS STABLE;MONITOR INDICATE NSR;NO C/O PAIN/DISTRESS;HOURLY ROUNDING;CON'T POC
[2018-06-17] MEDS: ATORVASTATIN 80 MG TAB PO SCH (20:32)
[2018-06-18] VITALS (10 sets, daily range): BP systolic 92–104; BP diastolic 58–76; PULSE 57–76; RESP 18
--- NOTE | 2018-06-18 06:42 | NUR ---
EOSS Patient stable, denied any c/o pain throughout the shift, vital signs stable, CT/Angio postponed by radiology department for this morning due to equipment failure. Plan of care explained to patient, report to be endorsed to oncoming shift.
--- NOTE | 2018-06-18 07:46 | CONS ---
Date/Time of Note Date/Time of Note DATE: 06/18/18 TIME: 07:43 Consult Date/Type/Reason Admit Date/Time Jun 15, 2018 at 22:26 Initial Consult Date Type of Consultation: cv Subjective cv follow up note S D/W staff and physicians d/w tele was reviewed. pt with no more chest pain or pressure or palpitations now no bleeding O: General: no acute distress HEENT: NC/AT. pupils are equal. round. NECK: NO JVD. no stridor. CV: RRR. systolic murmur; no gallop or rubs. PULM: no wheezing or rhonchi. GI: SOFT, NT, ND, no rebound or guarding Extremity: trace B/L LE edema. no clubbing. neuro: awake and alert, OX3. Psych: calm and pleasant rectal: deferred echo shows normal EF and no effusion Objective Vital Signs Date Temp Pulse Resp B/P (MAP) Pulse Ox O2 O2 Flow FiO2 Time Delivery Rate 06/18/18 98.5 64 18 98/58 (71) 96 07:25 06/18/18 Room Air 04:00 06/17/18 2.0 20:30 Intake and Output 06/17/18 06/17/18 06/18/18 1515:00 23:00 07:00 IntakeIntake Total 900 ml BalanceBalance 900 ml Results/Medications Result Diagram: 06/18/18 0555 06/18/18 0555 Results 24 hrs Laboratory Tests Test 06/18/18 05:55 White Blood Count 7.4 # Red Blood Count 3.92 L Hemoglobin 11.7 L Hematocrit 34.3 L Mean Corpuscular Volume 87.5 Mean Corpuscular Hemoglobin 29.8 Mean Corpuscular Hemoglobin Concent 34.1 Red Cell Distribution Width 12.8 Platelet Count 268 Mean Platelet Volume 11.2 H Immature Granulocytes % 0.800 H Neutrophils % Segmented Neutrophils % (Manual) 60 Band Neutrophils % (Manual) 1 Lymphocytes % Lymphocytes % (Manual) 26 Reactive Lymphocytes % (Manual) 4 H Monocytes % Monocytes % (Manual) 7 Eosinophils % Eosinophils % (Manual) 1 Basophils % Myelocytes % (Manual) 1 H Nucleated Red Blood Cells % 0.0 Immature Granulocytes # 0.060 H Neutrophils # Neutrophils # (Manual) 4.4 Band Neutrophils # 0.0 Lymphocytes (Manual) 1.9 Lymphocytes # Reactive Lymphocytes # 0.2 H Monocytes # Monocytes # (Manual) 0.5 Eosinophils # Basophils # Myelocytes # 0.0 Nucleated Red Blood Cells # Platelet Estimate NORMAL Giant Platelets 4 H Polychromasia 2+ Anisocytosis 2+ Microcytosis 2+ Sodium Level 144 Potassium Level 3.8 Chloride Level 104 Carbon Dioxide Level 30 Anion Gap 10 Blood Urea Nitrogen 13 Creatinine 0.59 Est Glomerular Filtrat Rate mL/min > 60 Glucose Level 104 Calcium Level 8.9 Troponin I 3.240 *H Medications Current Medications IV Flush (NS 3 ml) 3 ml PER PROTOCOL IV ; Start 06/16/18 at 00:00 Ondansetron HCl (Zofran Inj) 4 mg Q6H PRN IV NAUSEA AND/OR VOMITING; Start 06/16/18 at 00:00 Aspirin (Aspirin) 81 mg DAILY PO Last administered on 06/17/18at 09:09; Admin Dose 81 MG; Start 06/16/18 at 09:00 Nitroglycerin (Nitroglycerin (Sl Tab) 0.4 Mg) 1 tab Q5M PRN SL CHEST PAIN; Start 06/16/18 at 00:00 Acetaminophen (Tylenol Tab) 650 mg Q6H PRN PO PAIN LEVEL 1-3 OR FEVER; Start 06/16/18 at 00:00 Albuterol/ Ipratropium (Duoneb) 3 ml Q2H RESP THERAPY PRN HHN SHORTNESS OF BREATH; Start 06/16/18 at 00:00 Atorvastatin Calcium (Lipitor) 80 mg HS PO Last administered on 06/17/18at 20:32; Admin Dose 80 MG; Start 06/16/18 at 21:00 Morphine Sulfate (morphine) 2 mg Q4H PRN IV SEVERE PAIN LEVEL 7-10; Start 06/16/18 at 11:30 Metoprolol Tartrate (Lopressor) 25 mg BID PO Last administered on 06/17/18at 20:34; Admin Dose 25 MG; Start 06/17/18 at 14:30 Assessment/Plan Chief Complaint/Hosp Course chest pain and abnormal trop: c/w NSTEMI: but pt with no major risk factors. chest pain anemia hypotension: Rec; off lovenox cont ASA labor relations or personnel negotiator is not working. planned to do CT khoa angio but I was told it was not working either. will need to do khoa angio or at least CT khoa angio to define khoa anatomy, CONT LIPITOR betablocker if BP allows Thank you ERICKA AMARAL MD, MD Jun 18, 2018 07:45
[2018-06-18] MEDS: ASPIRIN 81 MG TAB PO SCH (08:55)
[2018-06-18] MEDS: METOPROLOL 25 MG TAB PO SCH ×2 (09:00→21:29)
--- NOTE | 2018-06-18 09:05 | NUR ---
REGARDING CT CORONARY ANGIOGRAM. I notified JOHNY Hinton that the Injector for CT is still down but is currently being serviced. As soon as it is up and functioning again, we will bring the patient down for the exam.
[2018-06-18] MEDS: ENOXAPARIN 40 MG/0.4 ML SYG SC SCH (09:12)
--- NOTE | 2018-06-18 13:45 | PN ---
Date/Time of Note Date/Time of Note DATE: 06/18/18 TIME: 13:43 Assessment/Plan VTE Prophylaxis Risk score (from Nsg)>0 risk: 1 SCD applied (from Nsg): Yes Pharmacological prophylaxis: LMWH Lines/Catheters IV Catheter Type (from Nrsg): Saline Lock Urinary Cath still in place: No Assessment/Plan Hospital Course SUBJECTIVE: No acute overnight episodes. No chest pain. OBJECTIVE: Vital signs-see below PHYSICAL EXAM: Constitutional: Well-developed, adequately built, lying in bed comfortably. Psych: nl mood/affect, no complaints Head: atraumatic, normocephalic Eyes: nl conjunctiva, nl sclera ENMT: mucosa pink and moist, nl external ears & nose Neck: non-tender, supple Respiratory: clear to auscultation, normal air movement Cardiovascular: nl pulses, regular rate and rhythm Gastrointestinal: non-tender, soft, bowel sounds active in all 4 quadrants. Musculoskeletal/extremities: nl extremities to inspection, motor strength equal bilaterally, no focal deficit. Normal pulses,no cyanosis, no edema. Neurological: Alert oriented 3,nl speech, nl strength Skin: nl turgor ASSESSMENT/PLAN:38-year-old female with no past medical or social history, admitted with 2-day duration of left-sided chest pain radiating to left shoulder, neck, and LUE, found to have elevated troponin with EKG changes. 1. Non-ST elevated myocardial infarction. -Plan is CT coronary angiography versus C-timing /scheduling per cardiology -Continue aspirin, high intensity statin. No indication for ATC per cardiology. DVT prophylaxis: Lovenox subcutaneous PUD prophylaxis: Not indicated Diet: Low-cholesterol/low-fat diet. Disposition: Continue current medical management and follow-up cardiology recommendations. Patient was seen in collaboration with Result Diagram: 06/18/18 0555 06/18/18 0555 Results 24hrs Laboratory Tests Test 06/18/18 05:55 White Blood Count 7.4 # Red Blood Count 3.92 L Hemoglobin 11.7 L Hematocrit 34.3 L Mean Corpuscular Volume 87.5 Mean Corpuscular Hemoglobin 29.8 Mean Corpuscular Hemoglobin Concent 34.1 Red Cell Distribution Width 12.8 Platelet Count 268 Mean Platelet Volume 11.2 H Immature Granulocytes % 0.800 H Neutrophils % Segmented Neutrophils % (Manual) 60 Band Neutrophils % (Manual) 1 Lymphocytes % Lymphocytes % (Manual) 26 Reactive Lymphocytes % (Manual) 4 H Monocytes % Monocytes % (Manual) 7 Eosinophils % Eosinophils % (Manual) 1 Basophils % Myelocytes % (Manual) 1 H Nucleated Red Blood Cells % 0.0 Immature Granulocytes # 0.060 H Neutrophils # Neutrophils # (Manual) 4.4 Band Neutrophils # 0.0 Lymphocytes (Manual) 1.9 Lymphocytes # Reactive Lymphocytes # 0.2 H Monocytes # Monocytes # (Manual) 0.5 Eosinophils # Basophils # Myelocytes # 0.0 Nucleated Red Blood Cells # Platelet Estimate NORMAL Giant Platelets 4 H Polychromasia 2+ Anisocytosis 2+ Microcytosis 2+ Sodium Level 144 Potassium Level 3.8 Chloride Level 104 Carbon Dioxide Level 30 Anion Gap 10 Blood Urea Nitrogen 13 Creatinine 0.59 Est Glomerular Filtrat Rate mL/min > 60 Glucose Level 104 Calcium Level 8.9 Troponin I 3.240 *H Exam/Review of Systems Vital Signs Vitals Vital Signs Date Temp Pulse Resp B/P (MAP) Pulse Ox O2 O2 Flow FiO2 Time Delivery Rate 06/18/18 59 12:00 06/18/18 98.4 18 101/58 96 11:36 (72) 06/18/18 Room Air 04:00 06/17/18 2.0 20:30 Intake and Output 06/17/18 06/17/18 06/18/18 1515:00 23:00 07:00 IntakeIntake Total 900 ml BalanceBalance 900 ml Medications Medications Current Medications IV Flush (NS 3 ml) 3 ml PER PROTOCOL IV ; Start 06/16/18 at 00:00 Ondansetron HCl (Zofran Inj) 4 mg Q6H PRN IV NAUSEA AND/OR VOMITING; Start 06/16/18 at 00:00 Aspirin (Aspirin) 81 mg DAILY PO Last administered on 06/18/18at 08:55; Admin Dose 81 MG; Start 06/16/18 at 09:00 Nitroglycerin (Nitroglycerin (Sl Tab) 0.4 Mg) 1 tab Q5M PRN SL CHEST PAIN; Start 06/16/18 at 00:00 Acetaminophen (Tylenol Tab) 650 mg Q6H PRN PO PAIN LEVEL 1-3 OR FEVER; Start 06/16/18 at 00:00 Albuterol/ Ipratropium (Duoneb) 3 ml Q2H RESP THERAPY PRN HHN SHORTNESS OF BREATH; Start 06/16/18 at 00:00 Atorvastatin Calcium (Lipitor) 80 mg HS PO Last administered on 06/17/18at 20:32; Admin Dose 80 MG; Start 06/16/18 at 21:00 Morphine Sulfate (morphine) 2 mg Q4H PRN IV SEVERE PAIN LEVEL 7-10; Start 06/16/18 at 11:30 Metoprolol Tartrate (Lopressor) 25 mg BID PO Last administered on 06/17/18at 20:34; Admin Dose 25 MG; Start 06/17/18 at 14:30 Enoxaparin Sodium (Lovenox) 40 mg DAILY SC Last administered on 06/18/18at 09:12; Admin Dose 40 MG; Start 06/18/18 at 09:00 KARINA RAPP NP Jun 18, 2018 13:45
[2018-06-18] MEDS ORDERED: SOD CHLORIDE 0.9% 100 ML ONE (15:47)
[2018-06-18] MEDS ORDERED: IOHEXOL 100 ML ONE (15:47)
[2018-06-18] MEDS ORDERED: NITROGLYCERIN AEROSOL (4.9 GM) ONE (16:13)
--- NOTE | 2018-06-18 18:05 | NUR ---
EOSS;PT STABLE;HEMODYNAMIC WNL'S;MONITOR NSR;DENIES PAIN;ALL NEEDS MET
--- NOTE | 2018-06-18 19:36 | RADRPT ---
Vent Rate: 71 bpm RR Interval: 0 msec MT Interval: 140 msec QRS Duration: 78 msec QT Interval: 394 msec QTC Interval: 428 msec P-R-T [place]: 74 - 81 - 34 degrees Normal sinus rhythm Septal infarct , age undetermined Abnormal ECG Electronically Signed By: Zuhair Barrera [id number]
[2018-06-18] MEDS: ATORVASTATIN 80 MG TAB PO SCH (21:28)
--- NOTE | 2018-06-18 23:24 | NUR ---
Procedure Ordered:CARDIAC ANGIO Reason for Exam Today: NSTEMI Previous Exams: Allergies:NKA Current Medications Taken: Glucophage ( ) Metformin ( ) Previous reaction to contrast media: Yes ( ) No ( ) : Yes ( ) No ( ) Asthma: Yes ( ) No ( ) Diabetes: Yes ( ) No ( ) Myeloma: Yes ( ) No ( ) Heart Disease: Yes ( ) No ( ) Cardiac Disease: Yes ( ) No ( ) Kidney Disease: Yes ( ) No ( ) Vascular Disease: Yes ( ) No ( ) NO TO ALL ABOVE Patient Teaching done: Yes (X ) No ( ) Dinkey Operator Used: Yes ( ) No ( ) Name of Dinkey Operator: Language Used: As part of the test requested by your doctor, contrast media may be injected into your vein while the x-rays are being taken. Occasionally, reactions from IV contrast may occur. The physician and staff of this hospital are trained to treat these reactions. Select the type of Contrast that will be given to patient: Isovue 300 ( ) Isovue 370 ( ) Visipaque ( ) Cystografin ( ) Gastrographin ( ) Redi-cat ( ) Volumen ( ) OMNIPAQUE 350 (X) Amount of contrast to be given: 98ML IV (X ) PO ( ) Date given: 06/18/18 Lab Values: BUN: 11 Creatinine: 0.56 Reason why contrast cannot be given: Location of patient pre-procedure: 514[facility] Location of patient post procedure: 514B
[2018-06-19] VITALS (7 sets, daily range): BP systolic 91–107; BP diastolic 50–64; PULSE 58–75; RESP 16–18
--- NOTE | 2018-06-19 06:00 | NUR ---
End of Shift Summary No change in pt condition. See pt assessment and EMAR
[2018-06-19] MEDS: ASPIRIN 81 MG TAB PO SCH (08:51)
[2018-06-19] MEDS: METOPROLOL 25 MG TAB PO SCH (08:51)
[2018-06-19] MEDS: ENOXAPARIN 40 MG/0.4 ML SYG SC SCH (08:56)
--- NOTE | 2018-06-19 11:36 | PN ---
Date/Time of Note Date/Time of Note DATE: 06/19/18 TIME: 11:35 Assessment/Plan VTE Prophylaxis Risk score (from Ns)>0 risk: 2 SCD applied (from Ns): Yes Pharmacological prophylaxis: NA/contraindicated Pharm contraindication: low risk/ambulating Lines/Catheters IV Catheter Type (from Nrs): Peripheral IV Urinary Cath still in place: No Assessment/Plan Hospital Course SUBJECTIVE: No acute overnight episodes. No chest pain. OBJECTIVE: Vital signs-see below PHYSICAL EXAM: Constitutional: Well-developed, adequately built, lying in bed comfortably. Psych: nl mood/affect, no complaints Head: atraumatic, normocephalic Eyes: nl conjunctiva, nl sclera ENMT: mucosa pink and moist, nl external ears & nose Neck: non-tender, supple Respiratory: clear to auscultation, normal air movement Cardiovascular: nl pulses, regular rate and rhythm Gastrointestinal: non-tender, soft, bowel sounds active in all 4 quadrants. Musculoskeletal/extremities: nl extremities to inspection, motor strength equal bilaterally, no focal deficit. Normal pulses,no cyanosis, no edema. Neurological: Alert oriented 3,nl speech, nl strength Skin: nl turgor ASSESSMENT/PLAN:38-year-old female with no past medical or social history, admitted with 2-day duration of left-sided chest pain radiating to left shoulder, neck, and LUE, found to have elevated troponin with EKG changes. 1. Non-ST elevated myocardial infarction. -Status post CT angiography=> Negative -Plan is Lexiscan stress test today with cardiology. -Continue aspirin, high intensity statin. No indication for ATC per cardiology. DVT prophylaxis: Lovenox subcutaneous PUD prophylaxis: Not indicated Diet: Low-cholesterol/low-fat diet. Disposition: We will up cardiology recommendations. Discharge disposition per cards. Patient was seen in collaboration with DR. Judd Result Diagram: 06/19/18 0615 06/19/18 0615 Results 24hrs Laboratory Tests Test 06/19/18 06:15 White Blood Count 10.1 # Red Blood Count 4.04 L Hemoglobin 11.9 L Hematocrit 34.8 L Mean Corpuscular Volume 86.1 Mean Corpuscular Hemoglobin 29.5 Mean Corpuscular Hemoglobin Concent 34.2 Red Cell Distribution Width 12.4 Platelet Count 303 Mean Platelet Volume 11.2 H Immature Granulocytes % 0.800 H Neutrophils % Segmented Neutrophils % (Manual) 58 Lymphocytes % Lymphocytes % (Manual) 30 Reactive Lymphocytes % (Manual) 2 H Monocytes % Monocytes % (Manual) 8 Eosinophils % Eosinophils % (Manual) 2 Basophils % Nucleated Red Blood Cells % 0.0 Immature Granulocytes # 0.080 H Neutrophils # Lymphocytes (Manual) 3.0 H Lymphocytes # Reactive Lymphocytes # 0.2 H Monocytes # Monocytes # (Manual) 0.8 Eosinophils # Basophils # Nucleated Red Blood Cells # Platelet Estimate NORMAL Polychromasia 1+ Anisocytosis 2+ Microcytosis 2+ Sodium Level 139 Potassium Level 3.9 Chloride Level 105 Carbon Dioxide Level 28 Anion Gap 6 Blood Urea Nitrogen 10 Creatinine 0.49 Est Glomerular Filtrat Rate mL/min > 60 Glucose Level 102 Calcium Level 8.8 Exam/Review of Systems Vital Signs Vitals Vital Signs Date Temp Pulse Resp B/P (MAP) Pulse Ox O2 O2 Flow FiO2 Time Delivery Rate 06/19/18 66 09:03 06/19/18 98.1 17 97/54 (68) 97 08:01 06/18/18 Room Air 04:00 06/17/18 2.0 20:30 Intake and Output 06/18/18 06/18/18 06/19/18 1414:59 22:59 06:59 IntakeIntake Total 800 ml 350 ml BalanceBalance 800 ml 350 ml Medications Medications Current Medications IV Flush (NS 3 ml) 3 ml PER PROTOCOL IV ; Start 06/16/18 at 00:00 Ondansetron HCl (Zofran Inj) 4 mg Q6H PRN IV NAUSEA AND/OR VOMITING; Start 06/16/18 at 00:00 Aspirin (Aspirin) 81 mg DAILY PO Last administered on 06/19/18at 08:51; Admin Dose 81 MG; Start 06/16/18 at 09:00 Nitroglycerin (Nitroglycerin (Sl Tab) 0.4 Mg) 1 tab Q5M PRN SL CHEST PAIN; Start 06/16/18 at 00:00 Acetaminophen (Tylenol Tab) 650 mg Q6H PRN PO PAIN LEVEL 1-3 OR FEVER; Start 06/16/18 at 00:00 Albuterol/ Ipratropium (Duoneb) 3 ml Q2H RESP THERAPY PRN HHN SHORTNESS OF BREATH; Start 06/16/18 at 00:00 Atorvastatin Calcium (Lipitor) 80 mg HS PO Last administered on 06/18/18at 21:28; Admin Dose 80 MG; Start 06/16/18 at 21:00 Morphine Sulfate (morphine) 2 mg Q4H PRN IV SEVERE PAIN LEVEL 7-10; Start 06/16/18 at 11:30 Metoprolol Tartrate (Lopressor) 25 mg BID PO Last administered on 06/19/18at 08:51; Admin Dose 25 MG; Start 06/17/18 at 14:30 Enoxaparin Sodium (Lovenox) 40 mg DAILY SC Last administered on 06/19/18at 08:56; Admin Dose 40 MG; Start 06/18/18 at 09:00 KARINA RAPP NP Jun 19, 2018 11:36
--- NOTE | 2018-06-19 13:57 | QN ---
Documentation Comment just called me and states that patient can be discharged as a coronary and if he is CTA is completely negative. Troponin trended down. Patient is chest pain-free. Advised to follow-up with PCP. case d/w . KARINA RAPP NP Jun 19, 2018 13:57
--- NOTE | 2018-06-19 13:58 | PDOCDIS ---
Discharge Instructions CONDITION [id number] Patient Condition: [id number] Stable HOME CARE INSTRUCTIONS: [id number] Diet Instructions: [id number] Regular FOLLOW UP/APPOINTMENTS Follow-up Plan Follow-up with primary care physician in 1 week. Recommend cardiology follow-up KARINA RAPP NP Jun 19, 2018 13:58
[2018-06-19] MEDS ORDERED: ASPI-831 PO (14:01)
[2018-06-19] MEDS ORDERED: ATOR-2 PO (14:01)
[2018-06-19] MEDS ORDERED: METO-448 PO (14:01)
--- NOTE | 2018-06-19 14:06 | DS ---
Date/Time of Note Date/Time of Note DATE: 06/19/18 TIME: 14:04 Discharge Summary Admission/Discharge Info Admit Date/Time Jun 15, 2018 at 22:26 Discharge Date/Time Discharge Diagnosis 1. Non-ST elevated myocardial infarction.Status post CT angiography=> Negative coronaries Patient Condition: Stable Procedures 06/18/2017. Cardiac CT. IMPRESSION: Total calcium score: 0 RCA: Normal. LM: Normal. LAD: Normal. LCX: Normal. RPTAT: AADD 2D echocardiogram Conclusions Overall, normal left ventricular systolic function. Not all segments visualized. Normal left ventricular cavity size. Normal left ventricular wall thickness. Ejection fraction is visually estimated at 60 %. Normal right ventricular size. Normal right ventricular systolic function. The left atrium is normal in size. The right atrium is normal in size. No significant valvular stenosis or regurgitation seen. Normal pericardium with no significant pericardial effusion. Electronically Signed By: Zoran Bryan 16-Jun-2018 12:11:19 -0800 Patient Name: RENETTA BUTTS Study Date: [id number]-[id number] Hospital Course 38-year-old female with no past medical or social history, admitted with 2-day duration of left-sided chest pain radiating to left shoulder, neck, and LUE, found to have elevated troponin. Patient was kept in telemetry. She had a normal echocardiogram. She was continued on aggressive medical management including aspirin, high intensity statin and beta-blockers. Patient had cardiology evaluation. Patient had a CT coronary angiography showed normal coronaries. Patient's chest pain resolved. She is completely asymptomatic. Troponin started to trend down. At this time, neurologist did not believe any further invasive cardiac intervention is indicated at this time, as such recommended to discharge patient on medical management. I gave her prescription for high intensity statin, beta-blockers and aspirin. I have instructed patient to follow-up with her primary care physician in 1 week and outpatient cardiology follow-up. Approximately 60 minutes was spent on coordinating the discharge on this patient. Patient was seen in collaboration with Dr. Judd. Home Meds Active Scripts Aspirin (Aspirin) 81 Mg Chew, 81 MG PO DAILY, #30 TAB Prov:KARINA RPAP NP 06/19/18 Metoprolol Tartrate* (Lopressor*) 25 Mg Tab, 25 MG PO BID, #60 TAB Prov:RAPPJORGE A [employer]YA [employer] 06/19/18 Atorvastatin* (Atorvastatin*) 80 Mg Tablet, 80 MG PO HS, #30 TAB Prov:RAPPMANUELKARINA [employer]. [employer] 06/19/18 Reported Medications Multivitamins* (Theragran*) 1 Tab Tab, 1 TAB PO DAILY, TAB 06/15/18 Ibuprofen* (Ibuprofen*) 200 Mg Capsule, 200 MG PO QID PRN for PAIN, CAP 06/15/18 Follow-up Plan Follow-up with primary care physician in 1 week. Recommend cardiology follow-up Primary Care Provider Care Physician No Primary Pending Labs Laboratory Tests Test 06/19/18 06:15 White Blood Count 10.1 10^3/ul (4.8-10.8) Red Blood Count 4.04 10^6/ul (4.20-5.40) Hemoglobin 11.9 g/dl (12.0-16.0) Hematocrit 34.8 % (37.0-47.0) Mean Corpuscular Volume 86.1 fl (82.0-101.0) Mean Corpuscular Hemoglobin 29.5 pg (29.0-33.0) Mean Corpuscular Hemoglobin Concent 34.2 g/dl (32.0-37.0) Red Cell Distribution Width 12.4 % (11.5-14.5) Platelet Count 303 10^3/UL (140-415) Mean Platelet Volume 11.2 fl (7.4-10.4) Immature Granulocytes % 0.800 % (0.001-0.429) Neutrophils % % (39.0-77.0) Segmented Neutrophils % (Manual) 58 % (39-77) Lymphocytes % % (15.0-51.0) Lymphocytes % (Manual) 30 % (15-51) Reactive Lymphocytes % (Manual) 2 % (0-0) Monocytes % % (0.0-11.0) Monocytes % (Manual) 8 % (0-11) Eosinophils % % (0.0-7.0) Eosinophils % (Manual) 2 % (0-7) Basophils % % (0.0-2.0) Nucleated Red Blood Cells % 0.0 /100WBC (0.0-0.0) Immature Granulocytes # 0.080 10^3/ul (0.0-0.031) Neutrophils # 10^3/ul (1.6-7.5) Lymphocytes (Manual) 3.0 10^3/ul (0.8-2.9) Lymphocytes # 10^3/ul (0.8-2.9) Reactive Lymphocytes # 0.2 10^3/ul (0.0-0.0) Monocytes # 10^3/ul (0.3-0.9) Monocytes # (Manual) 0.8 10^3/ul (0.3-0.9) Eosinophils # 10^3/ul (0.0-0.5) Basophils # 10^3/ul (0.0-0.1) Nucleated Red Blood Cells # 10^3/ul (0.0-0.0) Platelet Estimate NORMAL Polychromasia 1+ (0-0) Anisocytosis 2+ (0-0) Microcytosis 2+ (0-0) Sodium Level 139 mmol/L (135-144) Potassium Level 3.9 mmol/L (3.5-5.1) Chloride Level 105 mmol/L (97-110) Carbon Dioxide Level 28 mmol/L (21-31) Anion Gap 6 (5-13) Blood Urea Nitrogen 10 mg/dl (7-20) Creatinine 0.49 mg/dl (0.44-1.00) Est Glomerular Filtrat Rate mL/min > 60 mL/min (>60) Glucose Level 102 mg/dl (70-220) Calcium Level 8.8 mg/dl (8.4-10.2) KARINA RAPP NP Jun 19, 2018 14:06
--- NOTE | 2018-06-19 15:57 | NUR ---
discharge notes: Lashonda LEATHER PATCHER was here and spoke with patient and informed her that she is being discharge today, discharge instructions provided to her, discharge packet went over with the patient and used interpretative service name Rimma and ID# [id number], patient verbalized understanding. spouse at bedside, heart monitor removed, heplock removed.
== END 2018-06-19 16:00 | disposition home or self-care (01) | DRG 282 ==
LOC: E/R 20:20 → TEL 22:26 → CANRESERV 23:50
PROVIDERS: ADMIT Internal Medicine; ATTEND Internal Medicine
DX: I21.4 Non-ST elevation (NSTEMI) myocardial infarction (principal); D64.9 Anemia, unspecified; I95.9 Hypotension, unspecified
CPT/HCPCS: 36415; 71045; 75574; 80048; 80053; 80061; 82550; 82553; 83036; 83735; 84100; 84439; 84443; 84481; 84484; 84703; 85025; 85610; 85730; 93005; 93306; 96374; 96375; J1170; J1644; J1650; J2250; J2405; J2930; J3010; J7040; J7042; Q9967